=== PATIENT | male | born 1980 | race Caucasian/White ===

== ENCOUNTER → 2023-10-05 | Outpatient (CLI) | payer BC ==
--- NOTE | 2023-10-05 13:51 | US ---
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 No discrete solid or cystic area corresponding to the palpable swelling in the neck. If additional workup is required, consider contrast CT soft tissue neck
== END | disposition home or self-care (01) ==
LOC: RADUSWWP 12:57
PROVIDERS: ATTEND Family Medicine
DX: K11.20 Sialoadenitis, unspecified (principal)
CPT/HCPCS: 76536